=== PATIENT | female | born 2000 | race Caucasian/White ===

== ENCOUNTER → 2021-08-09 11:49 | Outpatient (BNVA) | payer MEDICAID, SELFPAY | PROVIDERS: Family Provider Family Medicine; PCP Family Medicine; Visit Provider Nurse Practitioner | DX: B34.9 Viral infection, unspecified (principal) | CPT/HCPCS: 87635 ==

== ENCOUNTER 2022-06-16 11:46 | Emergency (ER) | payer SELFPAY ==
[2022-06-16 11:59] VITALS: BP 129/85; PULSE 90; RESP 16; TEMP 37.4; O2SAT 98; BMI 32.0
[2022-06-16] MEDS: sodium chloride 0.9% 1,000 ML 999 ML IV (13:54)
[2022-06-16] MEDS: ondansetron 2 mg/ML SDV 2 mL 4 MG IVP (13:54)
[2022-06-16 14:22] VITALS: BP 129/85; PULSE 90; RESP 16; TEMP 37.4; O2SAT 98
--- NOTE | 2022-06-16 14:22 | W.ED.NAVMDI ---
HPI - Nausea/Vomiting/Diarrhea General: Chief complaint: Nausea/Vomiting/Diarrhea Stated complaint: N/V/D, headache Time Seen by Provider: 06/16/22 13:12 History of Present Illness: Patient is a 22-year-old female comes to the ED with nausea and vomiting. Symptoms started last night around 2 AM. Patient says she had some brisket and Pringles last night at around 8-9 o'clock. Her symptoms of nausea vomiting and diarrhea started suddenly. She states that her had same food last night and he had the same symptoms as well. Associated nausea: Yes Associated symtoms: Reports fatigue and nausea; Denies change in vision, chest pain, dysuria, headache(s) or palpitations Review of Systems Const: Reports: fatigue; Denies: fever(s) or chills Eyes: Denies: change in vision or eye discomfort ENMT: Denies: throat pain, odynophagia, nasal discharge or nasal congestion Card: Denies: chest pain, palpitations, edema, swelling of feet/ankles, dyspnea on exertion or orthopnea Resp: Denies: dyspnea, productive cough or non-productive cough GI: Reports: nausea and vomiting; Denies: abdominal pain, diarrhea, constipation or hematochezia : Denies: flank pain, dysuria or hematuria Musc: Denies: neck pain, back pain or extremity swelling Skin/Breast: Denies: rash or new lesions Neuro: Denies: headache(s), numbness in extremities or weakness in extremities PFS ED PFSH: Medical History No pertinent family history Surgical History No pertinent past surgical history Social History Smoking and tobacco status: current every day smoker (vape) Physical Exam Const: COMMON NORMALS: no acute distress, patient oriented x3, healthy appearing and alert GENERAL APPEARANCE: cooperative and comfortable HENMT: COMMON NORMALS: normocephalic HEAD & SCALP: normocephalic MOUTH: Normal oral and palatal mucosa present THROAT: posterior oropharynx normal and uvula midline Neck/C-Spine: COMMON NORMALS: supple GENERAL: Yes normal visual inspection Resp: COMMON NORMALS: normal respiratory effort, No retractions, No use of accessory muscles and clear to auscultation bilaterally AUSCULTATION: clear to auscultation bilaterally Cardio: COMMON NORMALS: regular rate, regular rhythm, S1 normal heart sound present, S2 normal heart sound present, No gallops present (Cardio), No clicks present (Cardio), No murmurs present (Cardio) and Peripheral pulses 2+ throughout RATE: regular rate RHYTHM: regular rhythm HEART SOUNDS: S1 normal heart sound present and S2 normal heart sound present PERIPHERAL PULSES: Peripheral pulses 2+ throughout GI: COMMON NORMALS: Normal to inspection, nondistended, normoactive bowel sounds present, Soft to palpation, non-tender and no masses PALPATION: Yes Soft to palpation : COMMON NORMALS: Yes no CVA tenderness BLADDER/KIDNEY EXAM: Yes no CVA tenderness Back/Pelvis: COMMON NORMALS: no CVA tenderness Extremity: COMMON NORMALS: normal to inspection Neuro: COMMON NORMALS: patient oriented x3 SENSORIUM/ORIENTATION: Yes alert GAIT: Yes Normal gait present Skin: GENERAL SKIN EXAM: dry skin Course ED course: Patient had no episodes of vomiting or diarrhea here in the ED. Her symptoms improved after a liter of IV fluids and Zofran. She was able to tolerate p.o. fluids here in the ED. Vital Signs: Vital signs: Vital Signs Temperature 99.3 F 06/16/22 14:22 Pulse Rate 90 06/16/22 14:22 Respiratory Rate 16 06/16/22 14:22 Blood Pressure 129/85 06/16/22 14:22 Pulse Oximetry 98 06/16/22 14:22 Oxygen Delivery Me thod 06/16/22 14:22 MDM - Nausea/Vomiting/Diarrhea Medical Decision Making Patient is a 22 old female comes to the ED with cute onset of nausea vomiting. Given history it is likely due to food poisoning since significant other ate the same thing and had same symptoms. Vitals are stable. Exam of patient is benign she has no abdominal tenderness. Labs are unremarkable. Her symptoms improved after a liter of IV fluids and Zofran. She was able to tolerate p.o. fluids here in the ED. Patient had no episodes of vomiting or diarrhea here in the ED. she was diagnosed with food poisoning and stable for discharge home. She was sent home with a prescription for Zofran for nausea. Return ED precautions given. Patient understood agree with plan. Lab Data I reviewed the patient's lab results. : 06/16/22 14:01 06/16/22 14:01 Laboratory Results WBC 9.0 10^3/uL (4.0-10.0) 06/16/22 14:01 RBC 4.51 10^6/uL (4.1-5.3) 06/16/22 14:01 Hgb 14.4 g/dL (11.5-15.3) 06/16/22 14:01 Hct 44.3 % (37.0-47.0) 06/16/22 14:01 MCV 98.2 fl (81-99) 06/16/22 14:01 MCH 31.9 pg (28.0-34.0) 06/16/22 14:01 MCHC 32.5 g/dL (30.0-36.0) 06/16/22 14:01 RDW 11.5 % (12.1-15.1) L 06/16/22 14:01 Plt Count 369 10^3/cmm (130-400) 06/16/22 14:01 MPV 9.0 fL (7.4-10.4) 06/16/22 14:01 Neut % (Auto) 84.8 % 06/16/22 14:01 Lymph % (Auto) 10.4 % 06/16/22 14:01 Yancey % (Auto) 3.9 % 06/16/22 14:01 Eos % (Auto) 0.3 % 06/16/22 14:01 Baso % (Auto) 0.3 % 06/16/22 14:01 Neut # (Auto) 7.59 10^3/uL (1.8-7.7) 06/16/22 14:01 Lymph # (Auto) 0.9 10^3/uL (0.8-4.8) 06/16/22 14:01 Yancey # (Auto) 0.4 10^3/uL (0.2-0.9) 06/16/22 14:01 Eos # (Auto) 0.0 10^3/uL (0.0-0.8) 06/16/22 14:01 Baso # (Auto) 0.0 10^3/uL (0.0-0.1) 06/16/22 14:01 Nucleated RBC % (auto) 0 % 06/16/22 14:01 Nucleated RBCs # 0.0 /100WBC 06/16/22 14:01 Sodium 133 mmol/L (136-145) L 06/16/22 14:01 Potassium 3.8 mmol/L (3.5-5.1) 06/16/22 14:01 Chloride 102 mmol/L (98-107) 06/16/22 14:01 Carbon Dioxide 20 mmol/L (22-29) L 06/16/22 14:01 Anion Gap 14.8 (5-19) 06/16/22 14:01 BUN 12 mg/dL (6-20) 06/16/22 14:01 Creatinine 0.5 mg/dL (0.5-0.9) 06/16/22 14:01 GFR Calculation 151.6 mL/min (90-130) H 06/16/22 14:01 Glucose 96 mg/dL (65-115) 06/16/22 14:01 Calculated Osmolality 276 mOsm/kg (285-295) L 06/16/22 14:01 Calcium 9.2 mg/dL (8.5-10.5) 06/16/22 14:01 Total Bilirubin 0.9 mg/dL (0.15-1.2) 06/16/22 14:01 AST 18 U/L (0-32) 06/16/22 14:01 ALT 24 U/L (0-33) 06/16/22 14:01 Alkaline Phosphatase 77 U/L (35-105) 06/16/22 14:01 Total Protein 7.6 g/dL (6.6-8.7) 06/16/22 14:01 Albumin 3.9 g/dL (3.5-5.2) 06/16/22 14:01 Globulin 3.7 g/dL (1.3-4.6) 06/16/22 14:01 Lipase 17 U/L (13-60) 06/16/22 14:01 HCG, Qual Negative (Negative) 06/16/22 14:01 Urine Color Yellow (Yellow) 06/16/22 13:47 Urine Appearance Clear (CLEAR) 06/16/22 13:47 Urine pH 7 (5-7) 06/16/22 13:47 Ur Specific [place] 1.010 (1.005-1.030) 06/16/22 13:47 Urine Protein 1+ (Negative) H 06/16/22 13:47 Urine Glucose (UA) Norm (Normal) 06/16/22 13:47 Urine Ketones 1+ (Negative) H 06/16/22 13:47 Urine Blood 3+ (Negative) H 06/16/22 13:47 Urine Nitrate Negative (Negative) 06/16/22 13:47 Urine Bilirubin Neg (Negative) 06/16/22 13:47 Urine Urobilinogen 1 mg/dL (Negative) H 06/16/22 13:47 Ur Leukocyte Esterase Negative (Negative) 06/16/22 13:47 Urine RBC 15-25 /hpf (0-2) H 06/16/22 13:47 Urine WBC 5-10 /hpf (0-5) H 06/16/22 13:47 Ur Squamous Epith Cells 5-10 /hpf (0-5) H 06/16/22 13:47 Amorphous Sediment Not Reportable 06/16/22 13:47 Urine Bacteria Trace /hpf (NONE) 06/16/22 13:47 Hyaline Casts 0-4 /lpf H 06/16/22 13:47 Urine Mucus Trace /hpf 06/16/22 13:47 Discharge Plan Discharge Patient Disposition: Home Clinical Impression: Food poisoning Condition: Stable Prescriptions: New ondansetron 4 mg tablet,disintegrating 4 mg PO Q8H PRN (Reason: nausea and vomiting) Qty: 12 0RF No Action cranberry fruit concentrate 250 mg Tablet,Chewable 250 mg PO BID Discharge Orders: Discharge ED (Routine); Ordered 06/16/22 Ordered By: Josh Glover Discharge Diet: Advance as tolerated and Clear Liquid Discharge Activity: Increase activity as tolerated Patient Instructions: Food Poisoning (ED) Activity Restrictions/Additional Instructions: Follow-up with medical provider as directed in the next 3 to 5 days for reevaluation. Do clear liquid diet for the rest of the day and then slowly advance diet as tolerated. Take medications as prescribed. Return to the ER or your medical provider if condition worsens. Please read and understand discharge instructions. Thank you for choosing [facility] for your healthcare needs today. Please realize this is an emergency room and that we are providing you with a medical screening exam and this may not be complete and all inclusive of all the testing and or work up that you may need to determine your ailment or severity of your illness. It is very important that you follow up as instructed or that you return to the Emergency Department should you have concerns or if your condition changes or worsens in any way. Coding Level of Care Code ED Director Sales And Marketing for [facility] Ts[facility] Exam Comprehensive
[2022-06-16 14:23] LABS: HCG, Serum Qual Negative (Negative)
[2022-06-16 14:29] LABS: Basophils % 0.3 %; Eosinophils % 0.3 %; Hematocrit 44.3 % (37.0-47.0); Hemoglobin 14.4 g/dL (11.5-15.3); Lymphocytes # 0.9 10^3/uL (0.8-4.8); Lymphocytes % 10.4 %; Mean Corpuscular HGB Conc 32.5 g/dL (30.0-36.0); Mean Corpuscular Hemoglobin 31.9 pg (28.0-34.0); Mean Corpuscular Volume 98.2 fl (81-99); Monocytes # 0.4 10^3/uL (0.2-0.9); Monocytes % 3.9 %; Neutrophils # 7.59 10^3/uL (1.8-7.7); Neutrophils % 84.8 %; Nucleated Red Blood Cells % 0 %; Platelet Count 369 10^3/cmm (130-400); Red Blood Count 4.51 10^6/uL (4.1-5.3); Red Cell Distribution Width 11.5 % (12.1-15.1)
[2022-06-16 14:31] LABS: Bilirubin Urine Neg (Negative); Blood Urine 3+ (Negative); Glucose Urine UA Norm (Normal); Ketones Urine 1+ (Negative); Nitrate Urine Negative (Negative); Protein Urine 1+ (Negative); Urine Appearance Clear (CLEAR); Urine Color Yellow (Yellow); Urobilinogen Urine 1 mg/dL (Negative); pH Urine 7 (5-7)
[2022-06-16 14:31] LABS: Alanine Aminotransferase 24 U/L (0-33); Albumin Level 3.9 g/dL (3.5-5.2); Alkaline Phosphatase 77 U/L (35-105); Blood Urea Nitrogen 12 mg/dL (6-20); Calcium 9.2 mg/dL (8.5-10.5); Carbon Dioxide 20 mmol/L (22-29); Chloride 102 mmol/L (98-107); Globulin 3.7 g/dL (1.3-4.6); Glomerular Filtration Rate 151.6 mL/min (90-130); Glucose 96 mg/dL (65-115); Lipase 17 U/L (13-60); Osmolality Calculated 276 mOsm/kg (285-295); Sodium 133 mmol/L (136-145); Total Bilirubin 0.9 mg/dL (0.15-1.2); Total Protein 7.6 g/dL (6.6-8.7)
[2022-06-16 14:32] LABS: Add Urine Culture? Yes; Add Urine Microscopic? YES; Bacteria Urine TRACE /hpf; Hyaline Casts Urine 0-4 /lpf; Leukocyte Esterase Urine Negative (Negative); Mucus Urine TRACE /hpf; RBC Urine 15-25 /hpf (0-2)
[2022-06-16] MEDS: metoclopramide 5 mg/mL SDV 2 mL 10 MG IVP (14:55)
[2022-06-16 14:56] LABS: Anion Gap 14.8 (5-19); Potassium 3.8 mmol/L (3.5-5.1)
[2022-06-16 14:57] LABS: Aspartate Amino Transferase 18 U/L (0-32)
[2022-06-16 15:44] VITALS: BP 110/72; PULSE 89; RESP 16; TEMP 37.1; O2SAT 98
== END 2022-06-16 15:46 | disposition home or self-care (01) ==
PROVIDERS: Emergency Provider Physician Assistant
DX: A05.9 Bacterial foodborne intoxication, unspecified (principal); F17.290 Nicotine dependence, other tobacco product, uncomplicated
CPT/HCPCS: 36415; 80053; 81001; 83690; 84703; 85025; 87086; 96361; 96374; 96375; 99284; J2405; J2765; J7030

== ENCOUNTER 2022-07-08 23:08 | Emergency (ER) | payer SELFPAY ==
[2022-07-08 23:14] VITALS: BP 120/79; PULSE 88; RESP 18; TEMP 36.9; O2SAT 100; BMI 32.9
[2022-07-08 23:29] VITALS: BP 118/68; RESP 14
--- NOTE | 2022-07-08 23:29 | ED_ITS ---
HPI - Extremity Problem General: Chief complaint: Extremity Injury, Lower Stated complaint: left leg injury Time Seen by Provider: 07/08/22 23:17 History of Present Illness: Patient is in today for left lower leg pain. She reports that earlier today she was moving a TV and it fell hitting the back of her calf on the left leg. She reports significant pain. Hurts to walk. She denies any possibility of . Associated symptoms: Deny chest pain or fever(s) Review of Systems Const: Denies: fever(s), chills or body aches Card: Denies: chest pain, palpitations or irregular heart rhythm Resp: Denies: dyspnea, productive cough or non-productive cough Musc: Reports: other (Pain in left posterior calf) [facility] ED PFSH: Medical History No pertinent family history Surgical History No pertinent past surgical history Social History Smoking and tobacco status: current every day smoker (vape) Physical Exam Const: COMMON NORMALS: no acute distress, patient oriented x3 and alert Resp: COMMON NORMALS: normal respiratory effort and No use of accessory muscles Extremity: NARRATIVE EXTREMITY EXAM: Posterior left calf there is ecchymosis with a couple superficial abrasions. This is just distal to the knee midline of the calf. Tenderness to palpation. No obvious bony or soft tissue deformity is appreciated patient still has dorsiflexion and plantarflexion of the foot. CSM within normal limits. Neuro: COMMON NORMALS: patient oriented x3 SENSORIUM/ORIENTATION: Yes alert Course Vital Signs: Vital signs: Vital Signs Temperature 98.4 F 07/08/22 23:14 Pulse Rate 88 07/08/22 23:14 Respiratory Rate 14 07/08/22 23:47 Blood Pressure 118/68 07/08/22 23:47 Pulse Oximetry 100 07/08/22 23:14 Oxygen Delivery Me thod 07/08/22 23:29 MDM - Extremity (Nontraumatic) Medical Decision Making Consider contusion, strain, tendon rupture. Patient has excellent range of motion and there is no balled up deformity that would indicate a potential tendon rupture. We will treat patient conservatively for contusion. 1 dose of ibuprofen given here tonight. Advised her of conservative treatments at home including ice, rest, NSAIDs. Advised patient to follow-up with primary care provider or return here as needed for new or worsening symptoms. Discharge Plan Discharge Patient Disposition: Home Clinical Impression: Contusion of left leg Qualifiers: Encounter type: initial encounter Qualified Code(s): S80.12XA - Contusion of left lower leg, initial encounter Condition: Stable Prescriptions: No Action cranberry fruit concentrate 250 mg Tablet,Chewable 250 mg PO BID ondansetron 4 mg tablet,disintegrating 4 mg PO Q8H PRN (Reason: nausea and vomiting) Qty: 12 0RF Discharge Orders: Discharge ED (Routine); Ordered 07/08/22 Ordered By: Rosalinda Liao Discharge Diet: Usual diet Discharge Activity: Increase activity as tolerated Patient Instructions: Contusion in Adults (ED) Activity Restrictions/Additional Instructions: Take Tylenol and/or ibuprofen as needed for pain and swelling. I recommend ice for the next 24 to 48 hours. Elevate the extremity. Follow-up with primary care provider as needed. Return to the ER for new or worsening symptoms inc luding, but not limited to, increasing pain, redness, swelling to the calf as this could be a sign of a blood clot. Stand Alone Forms: Work/School Release Coding Level of Care Code ED Pharmacy Messenger for [facility] Tsai
[2022-07-08] MEDS: ibuprofen 800 mg tablet PO (23:44)
[2022-07-08 23:47] VITALS: BP 118/68; RESP 14
== END 2022-07-08 23:49 | disposition home or self-care (01) ==
PROVIDERS: Emergency Provider Nurse Practitioner Family
DX: S80.12XA Contusion of left lower leg, initial encounter (principal); W20.8XXA Other cause of strike by thrown, projected or falling object, initial encounter
CPT/HCPCS: 99283